=== PATIENT | female | born 1970 | race Caucasian/White ===

== ENCOUNTER 2020-08-03 09:38 | Outpatient (REF) | payer OTHER, SELFPAY | END 2020-08-03 09:39 | disposition home or self-care (01) | LOC: HO.LAB 09:38 | PROVIDERS: Visit Provider Internal Medicine | DX: Z20.822 Contact with and (suspected) exposure to COVID-19 (principal) | CPT/HCPCS: 36415; C9803; U0003 ==

== ENCOUNTER 2020-09-16 11:34 | Outpatient (REF) | payer OTHER, SELFPAY | END 2020-09-16 11:35 | disposition home or self-care (01) | LOC: HO.LAB 11:34 | PROVIDERS: Visit Provider Internal Medicine | DX: Z20.822 Contact with and (suspected) exposure to COVID-19 (principal) | CPT/HCPCS: 36415; C9803; U0003; U0005 ==